=== PATIENT | male | born 1975 | race Caucasian/White ===

== ENCOUNTER → 2023-06-01 | Outpatient (CLI) | payer OTHER ==
--- NOTE | 2023-06-06 11:29 | MR ---
EXAMINATION TYPE: MR knee LT wo con DATE OF EXAM: 06/01/2023 COMPARISON: NONE HISTORY: Left knee pain. Acute medial meniscal tear per order. TECHNIQUE: Multiplanar, multisequence images of the knee is performed without IV contrast. FINDINGS: MEDIAL MENISCUS: Medial bulging medial meniscus on coronal images. Horizontal and oblique signal post erior horn medial meniscus extends to inferior articular surface. LATERAL MENISCUS: Anterior and posterior horns are intact without tear. CRUCIATE LIGAMENTS: The anterior and posterior cruciate ligaments are intact and unremarkable. COLLATERAL LIGAMENTS: The medial collateral ligament and lateral collateral ligament complex are inta ct and unremarkable. EXTENSOR MECHANISM: Visualized quadriceps and patellar tendons are intact. EFFUSION: No significant suprapatellar joint effusion. POPLITEAL CYST: Tiny popliteal/bauer cyst. TRICOMPARTMENT SPACES: Mild tricompartment joint space loss with minimal spurring. CARTILAGE: Mild to minimal cartilaginous loss medial tibiofemoral compartment. No significant chondro malacia patella. BONE MARROW SIGNAL: There are areas of heterogeneous diminished T1 and increased T2 signal involving the anterior aspect of the medial tibial plateau consistent with abnormal bone marrow edema. OTHER: No additional significant abnormality is appreciated. IMPRESSION: 1. Full-thickness tear posterior horn medial meniscus. 2. 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 3. Tiny popliteal cyst.
== END | disposition home or self-care (01) ==
LOC: RADMRIMAIN 21:15
PROVIDERS: ATTEND Orthopaedic Surgery
DX: M17.12 Unilateral primary osteoarthritis, left knee (principal); M23.322 Other meniscus derangements, posterior horn of medial meniscus, left knee; M71.22 Synovial cyst of popliteal space [Baker], left knee; S83.242A Other tear of medial meniscus, current injury, left knee, initial encounter; X58.XXXA Exposure to other specified factors, initial encounter

== ENCOUNTER → 2023-12-28 | Day surgery (SDC) | payer OTHER ==
[~2023-12-28] MED LIST: LIDOCAINE 2% (PF) 20 MG/ML 5 ML VIAL ONE; PROPOFOL 10 MG/ML 20 ML VIAL IV ONE
[2023-12-28 07:23] VITALS: RESP 16; TEMP 98.6
[2023-12-28] MEDS: IV FLUID CONTINUATION 1,000 ML IV ONE (07:38)
[2023-12-28] MEDS: LACTATED RINGERS 1,000 ML IV SCH (07:39)
[2023-12-28 08:45] VITALS: BP 145/74; PULSE 70
--- NOTE | 2023-12-28 08:57 | P.PCN ---
Date of Procedure: 12/28/23 Procedure(s) Performed: Brief history: Patient is a pleasant 48-year-old white male scheduled for an elective upper endoscopy as well as colonoscopy as a part of evaluation of GERD and screening for colon cancer Procedure performed: Esophagogastroduodenoscopy with biopsy Colonoscopy with biopsy Preoperative diagnosis: GERD Screening for colon cancer Anesthesia: MAC Procedure: After informed consent was obtained from the patient was brought into the endoscopy unit and IV sedation was administered by anesthesia under continuous monitoring. Initially upper endoscopy was done. The Olympus GF 160 video endoscope was inserted inserted into the mouth and esophagus intubated without any difficulty and was gradually advanced into the stomach and duodenum and carefully examined. The bulb and second part of the duodenum appeared normal. The scope was then withdrawn into the stomach adequately insufflated with air and upon careful examination the antrum and mild gastritis and biopsies were done of this area. Mucosa of the body, cardia and fundus appeared normal. The scope was then withdrawn into the esophagus. The GE junction was located at 45 cm to the incisors. It appeared regular with linear areas of erythema consistent with LA grade B reflux esophagitis.. Rest of the esophagus appeared normal. Patient tolerated the procedure well. At this time the patient continued to remain sedation. Initial digital rectal examination was normal. Olympus CF 160 video colonoscope was then inserted into the rectum and gradually advanced to the cecum without any difficulty. Careful examination was performed as the scope was gradually being withdrawn. The prep was excellent. The cecum, ascending colon, transverse colon, appeared normal. The descending colon there was a 5 mm polyp removed by cold biopsy. Rest of the descending colon, sigmoid colon and rectum appeared normal. Scattered r sigmoid diverticulosis. Retroflexion was performed in the rectum and small internal hemorrhoids were noted. Patient tolerated the procedure well. Impression: 1. Upper endoscopy revealed mild antral gastritis and LA grade B reflux esophagitis 2. Colonoscopy revealed 5 mm descending colon polyp status post cold biopsy, scattered, diverticulosis, small internal hemorrhoids Recommendations: Findings of this examination were discussed with the patient as well as his family. He was advised to use [id number] H2 blockers as needed for reflux symptoms. He was advised to follow up with the biopsy results and if the biopsy reveals adenoma recommend repeat colonoscopy in 5 years.
== END ==
LOC: ORWHC2ENDO 06:49
PROVIDERS: ATTEND Internal Medicine Gastroenterology
DX: Z12.11 Encounter for screening for malignant neoplasm of colon (principal); K63.5 Polyp of colon; K57.30 Diverticulosis of large intestine without perforation or abscess without bleeding; K64.8 Other hemorrhoids; K21.00 Gastro-esophageal reflux disease with esophagitis, without bleeding; K29.50 Unspecified chronic gastritis without bleeding; D72.820 Lymphocytosis (symptomatic); G47.33 Obstructive sleep apnea (adult) (pediatric); R56.9 Unspecified convulsions; Z79.890 Hormone replacement therapy; Z79.899 Other long term (current) drug therapy
CPT/HCPCS: 88305; 88342; 45380; 43239; J2704; J2003

== ENCOUNTER → 2024-01-08 | Outpatient (CLI) | payer OTHER ==
[2024-01-08 19:36] LABS: Gliadin AB IgA, Deaminated Positive (Negative); Gliadin AB IgA, Unit 90.5 U/mL; Gliadin AB IgG, Deaminated Positive (Negative); Gliadin AB IgG, Unit 67.3 U/mL
== END | disposition home or self-care (01) ==
LOC: LABWHC1 10:02
PROVIDERS: ATTEND Internal Medicine Gastroenterology
DX: R76.8 Other specified abnormal immunological findings in serum (principal)
CPT/HCPCS: 36415; 83516